=== PATIENT | female | born 1985 | race Hispanic/Latino ===

== ENCOUNTER → 2025-02-09 13:49 | Outpatient (REF) | payer OTHER, SELFPAY ==
[2025-02-13 07:43] LABS: HPV, High Risk Not Detected; HPV, High Risk Source Cervical
== END ==
LOC: CLINIC 13:49
PROVIDERS: ATTENDING PHYSICIAN Nurse Practitioner Adult Health
DX: Z12.4 Encounter for screening for malignant neoplasm of cervix (principal)
CPT/HCPCS: 87624

== ENCOUNTER 2025-04-04 14:09 | Emergency (ER) | payer SELFPAY ==
[2025-04-04 14:15] VITALS: BP 106/72
[2025-04-04 15:13] VITALS: BP 106/72
[2025-04-04 15:24] LABS: Urine Character Clear (Clear)
[2025-04-04 15:25] LABS: Hematocrit 38.7 % (37.0-47.0); Hemoglobin 13.6 g/dL (12.0-16.0); Mean Corp Hgb Conc. 35.1 g/dL (33.0-37.0); Mean Corpuscular Volume 84.3 fL (81.0-99.0); Nucleated Red Blood Cells % 0 %; Platelet Count 316 10^3/uL (130-400); Red Cell Dist. Width 12.9 % (11.5-14.5)
[2025-04-04 15:29] LABS: Urine Squamous Cell >30 /LPF (Few)
[2025-04-04 15:30] LABS: Urine White Cell 0-2 /HPF (0-5)
--- NOTE | 2025-04-04 15:39 | ED.GENMED ---
History of Present Illness
General
Chief Complaint: Flank Pain
Source: patient
Exam Limitations: none
Time Seen by Provider: 04/04/25 15:14
History of Present Illness
History of Present Illness:
39-year-old female presents complaining of pain to the left flank pain for 2 weeks now progressed to the lower abdomen. No nausea or vomiting. No fever. No urinary symptoms. She has been moving her bowels. The pain is made worse with motion.
She denies any blood in the urine. She is healthy otherwise. No other complaints at this time
Past History
Past History
ED Past Medical History: None
ED Past Surgical History:
Social History
Tobacco: Non-smoker
Phy Exam
Physical Exam
Physical Exam:
General: Well-appearing female no acute respiratory distress
HEENT normocephalic atraumatic
Heart: Regular rate and rhythm no murmurs
Lungs: Clear no wheeze
Abdomen is soft but tender to the left lower quadrant and mildly to the left costovertebral angle normal bowel sounds nondistended
Extremities: No cyanosis
Course
Orders/Labs/Results
Orders:
Orders
04/04/25 15:17
Complete Blood Count/With Diff Urgent
Comprehensive Metabolic Panel Urgent
HCG, Serum Qualitative Screen Urgent
Comment: ADD ON
Urinalysis Reflex To Culture Urgent
Date Specimen was Collected: 04/04/25
Time Specimen was Collected: 15:02
Urine Microscopic Reflex Cult Urgent
04/04/25 15:32
CT Abd/pelvis W Iv Cont Urgent
Comment:
Reason For Exam: LLQ pain, left flank pain
Ketorolac [Toradol] 15 mg IV NOW STA
04/04/25 15:40
Add On- LAB Urgent
Tests Added?: serum test
Abnormal Lab Results
04/04/25
15:17
Chloride 108 H mmol/L
(98-107)
Ur Occult Blood Reflex 2+ A
(Negative)
Urine RBC 3-6 A /HPF
(0-2)
Urine Bacteria (Reflex) Few A
(Negative)
Urine Albumin (Reflex) 2+ A
(Neg - Trace)
04/04/25 15:17
04/04/25 15:17
Vital Signs
Initial and Last Documented VS:
Initial Vital Signs
Temp Pulse Resp BP Pulse Ox
98.6 F 78 17 106/72 97
04/04/25 14:15 04/04/25 14:15 04/04/25 14:15 04/04/25 14:15 04/04/25 14:15
Last Documented Vital Signs
Temp Pulse Resp BP Pulse Ox
98.6 F 84 18 111/82 97
04/04/25 14:15 04/04/25 19:00 04/04/25 18:32 04/04/25 19:00 04/04/25 19:00
MDM/Problems Addressed
Differential Diagnosis Includes:
Left flank and lower abdominal pain. Consider renal colic versus diverticulitis versus musculoskeletal flank pain versus ectopic
Check labs and test. Urinalysis pending. Will order CT scan. Toradol ordered
*Pulse Oximetry
SaO2: 95
Oxygen Mode of Delivery: Room air
Patient hypoxic: no
*Critical Care Note
Total Time (30-74mins, 75-104mins- exclusive of procedures): Not Applicable
Update Note
Update Note:
CT demonstrates what looks like a fibroid within the uterus otherwise no acute finding. She is feeling better after Toradol. I suspect fibroid may be source of lower abdominal discomfort and perhaps she has a lumbar strain. Will continue with
anti-inflammatories and muscle relaxers
ED Attending Note
-
Portions of this chart may have been created with voice recognition software.� Occasional wrong word or��sound alike� substitutions may have occurred due to the inherent limitations of voice recognition software.
Discharge Plan
Departure
Patient Disposition: Home (Routine Discharge)
Date of Disposition: 04/04/25
Time of Disposition: 19:12
Patient with high blood pressure during this ER visit?: No
Discharge Problem:
Fibroid, uterine
Instructions: Uterine fibroids
Prescriptions:
New
ibuprofen 600 mg tablet
600 mg PO TID PRN (Reason: Pain) Qty: 20 0RF
cyclobenzaprine 10 mg tablet
10 mg PO TID PRN (Reason: spasm) Qty: 10 0RF
Referrals:
[facility] [Outside]
UNKNOWN - PT DOES,NOT KNOW [Family Provider]
Activity Restrictions/Additional Instructions:
Use prescribed medicine as directed. Please follow-up with clinic for further evaluation of the uterine fibroid. Return if needed otherwise
Interventions
Interventions:
*Risk Screen - Suicide Last Done: 04/04/25 14:17
*General Assessment Last Done: 04/04/25 14:17
*Neglect/Abuse Screening Last Done: 04/04/25 14:17
*ED- Fall Risk Assessment Last Done: 04/04/25 16:21
*ED COVID-19 Vaccine History Last Done: 04/04/25 14:17
GY-Ykdlae-Qmxhzxkxqw Assessment Last Done: 04/04/25 15:19
ED-Female Genitourinary Assessment Last Done: 04/04/25 15:19
Discharge Date and Time
Print Language: SLOVAK
[2025-04-04] MEDS: TORADOL 15 MG IV (15:52)
[2025-04-04 16:00] VITALS: BP 101/70
[2025-04-04 16:00] LABS: HCG, Serum Qualitative Screen Negative
[2025-04-04 16:04] LABS: ALT (SGPT) 18 U/L (0-35); AST (SGOT) 23 U/L (14-36); Albumin 4.3 g/dl (3.5-5.0); Alkaline Phosphatase 97 U/L (38-126); Blood Urea Nitrogen 17 mg/dl (7-17); Calcium 9.1 mg/dl (8.4-10.2); Carbon Dioxide 23 mmol/L (22-30); Chloride 108 mmol/L (98-107); Glucose 98 mg/dl (70-99); Potassium 4.4 mmol/L (3.5-5.1); Sodium 139 mmol/L (135-145); Total Protein 7.2 g/dl (6.3-8.2); eGFR > 60.00
[2025-04-04 17:30] VITALS: BP 104/55
[2025-04-04 18:32] VITALS: BP 96/61
[2025-04-04 19:00] VITALS: BP 111/82
== END 2025-04-04 19:26 | disposition home or self-care (01) ==
LOC: EMR 14:09
PROVIDERS: EMERGENCY PHYSICIAN Emergency Medicine
DX: D25.9 Leiomyoma of uterus, unspecified (principal)
CPT/HCPCS: 99284; 96374; 74177; 80053; 81003; 81015; 84703; 85025; Q9967